=== PATIENT | female | born 1935 | race Caucasian/White ===

== ENCOUNTER 2017-04-22 05:29 | Day surgery (SDC) | payer OTHER, BC ==
[~2017-04-22] VITALS: Ht 160 cm; Wt 70.3 kg
[~2017-04-22 05:29] MED LIST: ARICEPT5 MG PO; DAILY VALUE1 EACH PO; LO-DOSE ASPIRIN81 M2 PO
[2017-04-22 05:56] VITALS: BP 179/82
[2017-04-22] MEDS ORDERED: HYDROCODON-ACE1 EA11 PO (08:38)
[2017-04-22 10:18] VITALS: BP 155/80
[2017-04-22 11:45] VITALS: BP 168/84
== END 2017-04-22 12:00 | disposition home or self-care (01) ==
LOC: SDC
DX: K43.6 Other and unspecified ventral hernia with obstruction, without gangrene (principal); K80.20 Calculus of gallbladder without cholecystitis without obstruction; Z79.82 Long term (current) use of aspirin
CPT/HCPCS: 88302; C1781; J0131; J0690; J1100; J1885; J2405; J2710; J3010; S0020